=== PATIENT | female | born 1990 | race Asian ===

== ENCOUNTER 2017-11-21 08:04 | Day surgery (SDC) | payer OTHER ==
[~2017-11-21 08:04] MED LIST: CEFAZOLIN 2 GM/50 ML (PMX) 50 ML IVPB; SOD CHLORIDE 0.9% 1,000 ML IV
[2017-11-21] MEDS ORDERED: LIDOCAINE 1% (MPF) 30 ML INJ (09:48)
[2017-11-21] MEDS ORDERED: SOD CHLORIDE 0.9% 1,000 ML IV (10:00)
[2017-11-21] MEDS ORDERED: CEFAZOLIN 2 GM/50 ML (PMX) 50 ML IVPB (10:00)
[2017-11-21] MEDS ORDERED: MIDAZOLAM 1 MG/ML 2 ML INJ (10:04)
[2017-11-21] MEDS ORDERED: FENTAnyl 50 MCG/ML VIAL (10:04)
[2017-11-21] MEDS: BUPIVACAINE 0.25%/EPI (SDV) 30 ML INJ (10:36)
[2017-11-21] MEDS ORDERED: PROPOFOL 20 ML (10:51)
[2017-11-21] MEDS ORDERED: LIDOCAINE 2% (SDV) 5 ML INJ (10:51)
[2017-11-21] MEDS ORDERED: CEFAZOLIN 1 GM INJ (10:52)
[2017-11-21] MEDS ORDERED: ONDANSETRON 4 MG INJ (10:52)
[2017-11-21] MEDS ORDERED: ONDANSETRON 4 MG INJ IV (11:00)
[2017-11-21] MEDS ORDERED: IBUPROFEN 600 MG TAB PO (11:00)
== END 2017-11-21 12:37 | disposition home or self-care (01) ==
LOC: SDS 08:04
DX: L72.3 Sebaceous cyst (principal)
CPT/HCPCS: 11442; 84703; 88307